=== PATIENT | female | born 1995 | race Caucasian/White ===

== ENCOUNTER 2019-08-03 18:31 | Emergency (ER) | payer OTHER ==
[2019-08-03] MEDS ORDERED: SODIUM CHLORIDE 0.9% 1,000 ML IV ONE (20:30)
[2019-08-03 20:54] LABS: Appearance,Urine Clear (Clear); Bilirubin,Urine Negative (Negative); Blood,Urine Moderate (Negative); Color,Urine Yellow; Glucose,Urine (UA) Negative (Negative); Ketones,Urine Negative (Negative); Leukocyte Esterase,Urine Trace (Negative); Mucus,Urine Rare /hpf; Nitrite,Urine Negative (Negative); PH, Urine 6.5 (5.0-8.0); Protein,Urine Negative (Negative); RBC,Urine 23 /hpf (0-5); Specific Gravity,Urine 1.012 (1.001-1.035); Squamous Epithelial Cell,Urine 8 /hpf (0-4); Urobilinogen,Urine <2.0 mg/dL (<2.0); WBC,Urine 4 /hpf (0-5)
[2019-08-03 21:00] LABS: Basophils # (A) 0.1 k/uL (0-0.2); Basophils % (A) 1 %; Eosinophils # (A) 0.1 k/uL (0-0.7); Eosinophils % (A) 1 %; HCT 37.6 % (34.0-46.0); Lymphocytes # (A) 3.2 k/uL (1.0-4.8); Lymphocytes % (A) 37 %; MCH 27.1 pg (25.0-35.0); MCHC 31.9 g/dL (31.0-37.0); MCV 84.9 fL (80.0-100.0); Mean Platelet Volume 8.5; Monocytes # (A) 0.4 k/uL (0-1.0); Monocytes % (A) 4 %; Neutrophils # (A) 4.8 k/uL (1.3-7.7); Neutrophils % (A) 55 %; Platelet Count 315 k/uL (150-450); RBC 4.43 m/uL (3.80-5.40); RDW 13.3 % (11.5-15.5); WBC 8.8 k/uL (3.8-10.6)
[2019-08-03 21:14] LABS: INR 0.9 (<1.2); Partial Thromboplastin Time 23.9 sec (22.0-30.0); Prothrombin Time 9.8 sec (9.0-12.0)
[2019-08-03 21:17] LABS: ALT 25 U/L (9-52); AST 23 U/L (14-36); African American GFR (CKD) >90 (>60 ml/min/1.73 sqM); Albumin 4.5 g/dL (3.5-5.0); Alkaline Phosphatase 64 U/L (38-126); Anion Gap 10 mmol/L; Blood Urea Nitrogen 8 mg/dL (7-17); Calcium 9.3 mg/dL (8.4-10.2); Carbon Dioxide 26 mmol/L (22-30); Chloride 105 mmol/L (98-107); Glucose 100 mg/dL (74-99); Sodium 141 mmol/L (137-145); Total Bilirubin 0.2 mg/dL (0.2-1.3)
--- NOTE | 2019-08-03 21:50 | ED ---
General Adult HPI - General Chief complaint: Urogenital Stated complaint: Female Time Seen by Provider: 08/03/19 19:49 Source: patient Mode of arrival: ambulatory Limitations: no limitations - History of Present Illness Initial comments: 24-year-old female patient presents to the emergency department today for evaluation of vaginal bleeding. Patient states for the last 3 months her periods have been very heavy and prolonged. States that she has been bleeding for the last 30 days. States she will have one or 2 days where the bleeding will stop, then it will start again. States yesterday she had to change her pad every two hours. States the bleeding has decreased today. She denies any abdominal or back pain with this. States that she does occasionally have episodes are so feel lightheaded. Denies any dizziness or syncope. Denies any use of control or other hormonal medications. She is , delivered a healthy son 3 years ago. She denies any itching or abnormal discharge. Denies any concern for sexually transmitted infections. Denies any history of abdominal surgery. Denies any history of clotting disorders or use of a nticoagulants. States her last gynecologic exam was 3 years ago after delivery of her child. Patient denies any recent rash, fever, chills, shortness breath, chest pain, nausea, vomiting, diarrhea, constipation, back pain, numbness, tingling, dizziness, weakness, dysuria, urinary urgency, urinary frequency, headache, visual changes, or any other complaints. - Related Data Home Medications Medication Instructions Recorded Confirmed Multivitamins, Thera [Multivitamin 1 tab PO DAILY 08/03/19 08/03/19 (formulary)] Allergies Allergy/AdvReac Type Severity Reaction Status Date / Time Penicillins Allergy Unknown Verified 08/03/19 20:15 Review of Systems ROS Statement: Those systems with pertinent positive or pertinent negative responses have been documented in the HPI. ROS Other: All systems not noted in ROS Statement are negative. Past Medical History Past Medical History: No Reported History History of Any Multi-Drug Resistant Organisms: None Reported Past Surgical History: No Surgical Hx Reported Past Psychological History: Anxiety, Depression Smoking Status: Never smoker Past Alcohol Use History: Occasional Past Drug Use History: None Reported General Exam Limitations: no limitations General appearance: alert, in no apparent distress, other (This is a well- developed, well-nourished adult female patient in no acute distress. Vital signs upon presentation are temperature 98.8F, pulse 99, respirations 18, blood pressure 132/86, pulse ox 99% on room air) Eye exam: Present: normal appearance, PERRL, EOMI. Absent: scleral icterus, conjunctival injection, periorbital swelling ENT exam: Present: normal exam, normal oropharynx, mucous membranes moist Respiratory exam: Present: normal lung sounds bilaterally. Absent: respiratory distress, wheezes, rales, rhonchi, stridor Cardiovascular Exam: Present: regular rate, normal rhythm, normal heart sounds. Absent: systolic murmur, diastolic murmur, rubs, gallop, clicks GI/Abdominal exam: Present: soft, normal bowel sounds. Absent: distended, tenderness, guarding, rebound, rigid External exam: Present: normal external exam Speculum exam: Present: vaginal bleeding (Mild, dark red). Absent: tissue, laceration By manual exam: Present: normal by manual exam. Absent: cervical motion tenderness, adnexal tenderness, uterine enlargement Neurological exam: Present: alert, oriented X3, CN II-XII intact Psychiatric exam: Present: normal affect, normal mood Skin exam: Present: warm, dry, intact, normal color. Absent: rash Course Vital Signs 08/03/19 18:55 Temperature 98.8 F Pulse Rate 99 Respiratory 18 Rate Blood Pressure 132/86 O2 Sat by Pulse 99 Oximetry Medical Decision Making - Medical Decision Making 24-year-old female patient presents to the emergency department today for evaluation of vaginal bleeding which has been both heavier than usual and prolonged. Physical examination is unremarkable. Pelvic exam was performed and did reveal mild vaginal bleeding from the cervical os. No uterine enlargement or adnexal tenderness. Labs reviewed and were unremarkable. Hemoglobin is normal. Ultrasound reviewed and did show mild hypertrophy of the endometrium and a complex left ovarian cyst. Vital signs are within normal ranges. She is not having any pain with her symptoms. I did discuss these findings with the patient. She'll be discharged to follow-up with the coke loader for further evaluation as soon as possible. She is instructed to follow-up with her primary care physician for recheck in 1-2 days. Return parameters were discussed in detail. She verbalizes understanding and agrees with this plan. Case was discussed with my attending physician Dr. Samson who agreed with my impression and plan. - Lab Data Result diagrams: 08/03/19 20:54 08/03/19 20:54 Lab Results 08/03/19 08/03/19 08/03/19 Range/Units 20:36 20:36 20:54 WBC 8.8 (3.8-10.6) k/uL RBC 4.43 (3.80-5.40) m/uL Hgb 12.0 (11.4-16.0) gm/dL Hct 37.6 (34.0-46.0) % MCV 84.9 (80.0-100.0) fL MCH 27.1 (25.0-35.0) pg MCHC 31.9 (31.0-37.0) g/dL RDW 13.3 (11.5-15.5) % Plt Count 315 (150-450) k/uL Neutrophils % 55 % Lymphocytes % 37 % Monocytes % 4 % Eosinophils % 1 % Basophils % 1 % Neutrophils # 4.8 (1.3-7.7) k/uL Lymphocytes # 3.2 (1.0-4.8) k/uL Monocytes # 0.4 (0-1.0) k/uL Eosinophils # 0.1 (0-0.7) k/uL Basophils # 0.1 (0-0.2) k/uL PT (9.0-12.0) sec INR (<1.2) APTT (22.0-30.0) sec Sodium (137-145) mmol/L Potassium (3.5-5.1) mmol/L Chloride (98-107) mmol/L Carbon Dioxide (22-30) mmol/L Anion Gap mmol/L BUN (7-17) mg/dL Creatinine (0.52-1.04) mg/dL Est GFR (CKD-EPI)AfAm (>60 ml/min/1.73 sqM) Est GFR (CKD-EPI)NonAf (>60 ml/min/1.73 sqM) Glucose (74-99) mg/dL Calcium (8.4-10.2) mg/dL Total Bilirubin (0.2-1.3) mg/dL AST (14-36) U/L ALT (9-52) U/L Alkaline Phosphatase (38-126) U/L Total Protein (6.3-8.2) g/dL Albumin (3.5-5.0) g/dL TSH (0.465-4.680) mIU/L Urine Color Yellow Urine Appearance Clear (Clear) Urine pH 6.5 (5.0-8.0) Ur Specific [place] 1.012 (1.001-1.035) Urine Protein Negative (Negative) Urine Glucose (UA) Negative (Negative) Urine Ketones Negative (Negative) Urine Blood Moderate H (Negative) Urine Nitrite Negative (Negative) Urine Bilirubin Negative (Negative) Urine Urobilinogen <2.0 (<2.0) mg/dL Ur Leukocyte Esterase Trace H (Negative) Urine RBC 23 H (0-5) /hpf Urine WBC 4 (0-5) /hpf Ur Squamous Epith Cells 8 H (0-4) /hpf Urine Mucus Rare H (None) /hpf Urine HCG, Qual Not Detected (Not Detectd) 08/03/19 08/03/19 08/03/19 Range/Units 20:54 20:54 20:54 WBC (3.8-10.6) k/uL RBC (3.80-5.40) m/uL Hgb (11.4-16.0) gm/dL Hct (34.0-46.0) % MCV (80.0-100.0) fL MCH (25.0-35.0) pg MCHC (31.0-37.0) g/dL RDW (11.5-15.5) % Plt Count (150-450) k/uL Neutrophils % % Lymphocytes % % Monocytes % % Eosinophils % % Basophils % % Neutrophils # (1.3-7.7) k/uL Lymphocytes # (1.0-4.8) k/uL Monocytes # (0-1.0) k/uL Eosinophils # (0-0.7) k/uL Basophils # (0-0.2) k/uL PT 9.8 (9.0-12.0) sec INR 0.9 (<1.2) APTT 23.9 (22.0-30.0) sec Sodium 141 (137-145) mmol/L Potassium 4.0 (3.5-5.1) mmol/L Chloride 105 (98-107) mmol/L Carbon Dioxide 26 (22-30) mmol/L Anion Gap 10 mmol/L BUN 8 (7-17) mg/dL Creatinine 0.68 (0.52-1.04) mg/dL Est GFR (CKD-EPI)AfAm >90 (>60 ml/min/1.73 sqM) Est GFR (CKD-EPI)NonAf >90 (>60 ml/min/1.73 sqM) Glucose 100 H (74-99) mg/dL Calcium 9.3 (8.4-10.2) mg/dL Total Bilirubin 0.2 (0.2-1.3) mg/dL AST 23 (14-36) U/L ALT 25 (9-52) U/L Alkaline Phosphatase 64 (38-126) U/L Total Protein 8.0 (6.3-8.2) g/dL Albumin 4.5 (3.5-5.0) g/dL TSH 2.150 (0.465-4.680) mIU/L Urine Color Urine Appearance (Clear) Urine pH (5.0-8.0) Ur Specific [place] (1.001-1.035) Urine Protein (Negative) Urine Glucose (UA) (Negative) Urine Ketones (Negative) Urine Blood (Negative) Urine Nitrite (Negative) Urine Bilirubin (Negative) Urine Urobilinogen (<2.0) mg/dL Ur Leukocyte Esterase (Negative) Urine RBC (0-5) /hpf Urine WBC (0-5) /hpf Ur Squamous Epith Cells (0-4) /hpf Urine Mucus (None) /hpf Urine HCG, Qual (Not Detectd) - Radiology Data Radiology results: report reviewed, image reviewed Transvaginal ultrasound was obtained. Report was reviewed in its entirety. Impression by Dr. James shows mild hypertrophy of the endometrium. Complex left ovarian cyst. No free fluid. Disposition Clinical Impression: Dysfunctional uterine bleeding, Ovarian cyst Disposition: HOME SELF-CARE Condition: Good Instructions (If sedation given, give patient instructions): Dysfunctional Uterine Bleeding (ED), Ovarian Cyst (ED) Additional Instructions: Follow-up with gynecology for further evaluation as soon as possible. Increase fluids. Follow-up with coke loader for further evaluation as soon as possible. Follow up with primary care physician for recheck in 1-2 days. Return to the emergency department immediately for any new, worsening, or concerning symptoms. Is patient prescribed a controlled substance at d/c from ED?: No Referrals: Jeet Garrido MD [STAFF PHYSICIAN] - 1-2 days Time of Disposition: 22:51
--- NOTE | 2019-08-03 22:22 | US ---
EXAMINATION TYPE: US transvaginal DATE OF EXAM: 08/03/2019 COMPARISON: NONE CLINICAL HISTORY: pain. Pain per order. Irregular periods x 3 months. Each last about 1 month. Clots. . TECHNIQUE: Transvaginal (TV). Date of LMP: 07/13/2019 EXAM MEASUREMENTS: Uterus: 9.0 x 5.3 x 4.6 cm Endometrial Stripe: 1.54 cm Right Ovary: not seen Left Ovary: 3.5 x 2.6 x 2.2 cm 1. Uterus: Anteverted Small cluster of hyperechoic areas seen in the [place] measurin.4 x 0.4 x 0. 6 cm. Multiple anechoic areas seen in [place], largest measurin.5 x 0.4 x 0.4 cm. 2. Endometrium: Appears slightly thickened 3. Right Ovary: not seen 4. Left Ovary: Complex area seen in left ovary measurin.7 x 1.3 x 1.3 cm. Spectral, color and waveform doppler imaging shows good arterial and venous flow within the left ov jacques; there is no evidence for ovarian torsion of the left ovary. Right ovary is not seen. 5. Bilateral Adnexa: appear wnl 6. Posterior cul-de-sac: appears wnl . IMPRESSION: : Mild hypertrophy of the endometrium. Complex left ovarian cyst. No free fluid.
[2019-08-03 23:02] VITALS: BP 124/74; PULSE 79; RESP 20; TEMP 98.1
== END 2019-08-03 23:12 | disposition home or self-care (01) ==
LOC: EC 18:31
DX: N93.8 Other specified abnormal uterine and vaginal bleeding (principal); N83.202 Unspecified ovarian cyst, left side; R42 Dizziness and giddiness; Z88.0 Allergy status to penicillin
CPT/HCPCS: 36415; 76830; 80053; 81001; 81025; 84443; 85025; 85610; 85730; 93976; 96360; 99284

== ENCOUNTER 2020-05-25 23:21 | Emergency (ER) | payer OTHER ==
[2020-05-25] MEDS ORDERED: IBUPROFEN 400 MG TAB PO STA (23:51)
[2020-05-25] MEDS ORDERED: ACETAMINOPHEN TAB 325 MG TAB PO STA (23:51)
--- NOTE | 2020-05-26 00:16 | ED ---
Fever HPI - General Chief Complaint: Fever Stated Complaint: Fever, headaches Time Seen by Provider: 05/25/20 23:37 Source: patient Mode of arrival: ambulatory Limitations: no limitations - History of Present Illness MD Complaint: fever Onset/Timin -: days(s) Temperature Source: subjective Associated Symptoms: myalgias, headache Treatments Prior to Arrival: none - Related Data Home Medications Medication Instructions Recorded Confirmed Multivitamins, Thera [Multivitamin 1 tab PO DAILY 08/03/19 08/03/19 (formulary)] Previous Rx's Medication Instructions Recorded Sulfamethox-Tmp 800-160Mg [Bactrim 1 each PO Q12HR #10 tab 05/26/20 Ds] Allergies Allergy/AdvReac Type Severity Reaction Status Date / Time Penicillins Allergy Unknown Verified 05/25/20 23:29 Review of Systems ROS Statement: Those systems with pertinent positive or pertinent negative responses have been documented in the HPI. ROS Other: All systems not noted in ROS Statement are negative. Constitutional: Reports: fever. Denies: chills, weakness Eyes: Denies: eye pain ENT: Denies: ear pain, throat pain, congestion Respiratory: Denies: cough, dyspnea Cardiovascular: Denies: chest pain, palpitations, edema, syncope Gastrointestinal: Denies: abdominal pain, nausea, vomiting, diarrhea, constipation Genitourinary: Denies: dysuria, frequency, hematuria, discharge Musculoskeletal: Reports: myalgia. Denies: back pain, arthralgia Skin: Denies: rash Neurological: Reports: headache. Denies: weakness, numbness, paresthesias, confusion Psychiatric: Denies: anxiety Past Medical History Past Medical History: No Reported History History of Any Multi-Drug Resistant Organisms: None Reported Past Surgical History: No Surgical Hx Reported Past Psychological History: Anxiety, Depression Smoking Status: Never smoker Past Alcohol Use History: Occasional Past Drug Use History: None Reported General Exam Limitations: no limitations General appearance: alert, in no apparent distress Head exam: Present: atraumatic, normocephalic Eye exam: Present: normal appearance. Absent: scleral icterus, conjunctival injection ENT exam: Present: normal oropharynx, mucous membranes moist Neck exam: Present: normal inspection, full ROM, lymphadenopathy. Absent: tenderness, meningismus Respiratory exam: Present: normal lung sounds bilaterally. Absent: respiratory distress, wheezes, rales, rhonchi, stridor Cardiovascular Exam: Present: normal rhythm, tachycardia, normal heart sounds. Absent: systolic murmur, diastolic murmur, rubs, gallop GI/Abdominal exam: Present: soft. Absent: distended, tenderness, guarding, rebound, rigid, mass Extremities exam: Present: normal inspection, normal capillary refill. Absent: pedal edema, calf tenderness Back exam: Present: normal inspection. Absent: CVA tenderness (R), CVA tenderness (L) Neurological exam: Present: alert, oriented X3. Absent: motor sensory deficit Skin exam: Present: warm, dry, intact, normal color. Absent: rash Course Vital Signs 05/25/20 05/26/20 23:26 00:23 Temperature 103.3 F H 100.1 F H Pulse Rate 140 H 125 H Respiratory 20 16 Rate Blood Pressure 125/66 104/75 O2 Sat by Pulse 97 95 Oximetry Medical Decision Making - Lab Data Lab Results 05/26/20 05/26/20 Range/Units 00:23 00:23 Urine Color Yellow Urine Appearance Cloudy H (Clear) Urine pH 5.5 (5.0-8.0) Ur Specific [place] 1.015 (1.001-1.035) Urine Protein 1+ H (Negative) Urine Glucose (UA) Negative (Negative) Urine Ketones Negative (Negative) Urine Blood Negative (Negative) Urine Nitrite Negative (Negative) Urine Bilirubin Negative (Negative) Urine Urobilinogen 2.0 (<2.0) mg/dL Ur Leukocyte Esterase Large H (Negative) Urine RBC 5 (0-5) /hpf Urine WBC 53 H (0-5) /hpf Ur Squamous Epith Cells 8 H (0-4) /hpf Urine Bacteria Rare H (None) /hpf Hyaline Casts 2 (0-2) /lpf Urine Mucus Many H (None) /hpf Urine HCG, Qual Not Detected (Not Detectd) Disposition Clinical Impression: Urinary tract infection Disposition: HOME SELF-CARE Condition: Good Instructions (If sedation given, give patient instructions): Urinary Tract Infection in Women (ED) Prescriptions: Sulfamethox-Tmp 800-160Mg [Bactrim Ds] 1 each PO Q12HR #10 tab Is patient prescribed a controlled substance at d/c from ED?: No Referrals: Maty Nunez MD [Primary Care Provider] - 1-2 days
[2020-05-26 00:25] VITALS: RESP 16
[2020-05-26 00:36] LABS: Appearance,Urine Cloudy (Clear); Bacteria,Urine Rare /hpf; Bilirubin,Urine Negative (Negative); Blood,Urine Negative (Negative); Color,Urine Yellow; Glucose,Urine (UA) Negative (Negative); Hyaline Casts,Urine 2 /lpf (0-2); Ketones,Urine Negative (Negative); Leukocyte Esterase,Urine Large (Negative); Mucus,Urine Many /hpf; Nitrite,Urine Negative (Negative); PH, Urine 5.5 (5.0-8.0); Protein,Urine 1+ (Negative); RBC,Urine 5 /hpf (0-5); Specific Gravity,Urine 1.015 (1.001-1.035); Squamous Epithelial Cell,Urine 8 /hpf (0-4); WBC,Urine 53 /hpf (0-5)
[2020-05-26] MEDS ORDERED: SULFAMETHOX-TMP 800-160MG 1 EACH TAB PO STA (00:46)
[2020-05-26 01:33] VITALS: BP 118/71; PULSE 108; TEMP 98.7
== END 2020-05-26 01:33 | disposition home or self-care (01) ==
LOC: EC 23:21
DX: N39.0 Urinary tract infection, site not specified (principal); R50.9 Fever, unspecified; Z88.0 Allergy status to penicillin; Z20.828 Contact with and (suspected) exposure to other viral communicable diseases
CPT/HCPCS: 99283; 81001; 81025; U0003

== ENCOUNTER → 2021-10-21 | Outpatient (CLI) | payer OTHER ==
--- NOTE | 2021-10-21 11:06 | US ---
EXAMINATION TYPE: US pelvis complete transvag DATE OF EXAM: 10/21/2021 COMPARISON: NONE CLINICAL HISTORY: N92.6 IRREGULAR MENSES. TECHNIQUE: Transvaginal (TV) and Transabdominal (TA) . Transabdominal sonographic images of the pel vis were acquired. Transvaginal sonographic images were medically necessary to better assess the fol lowing anatomy: Ovaries Date of LMP: 10/19/2021 EXAM MEASUREMENTS: Uterus: 9.4 x 5.7 x 4.2 cm Endometrial Stripe: 0.7- 0.8 cm Right Ovary: 5.3 x 2.4 x 2.5 cm Left Ovary: 3.4 x 2.2 x 2.2 cm 1. Uterus: Anteverted wnl 2. Endometrium: wnl 3. Right Ovary: wnl 4. Left Ovary: wnl 6. Posterior cul-de-sac: wnl Heterogeneous uterus without free fluid in pelvis. Both ovaries seen scattered peripheral follicles. No suspicious extraovarian adnexal masses. IMPRESSION: Slightly thickened endometrium for proliferative phase of menstrual cycle otherwise unrem arkable study.
== END | disposition home or self-care (01) ==
LOC: RADUSWWP 09:42
PROVIDERS: ATTEND Family Medicine
DX: N92.6 Irregular menstruation, unspecified (principal)
CPT/HCPCS: 76830; 76856

== ENCOUNTER 2023-12-11 10:52 | Emergency (ER) | payer OTHER ==
[2023-12-11 11:06] VITALS: TEMP 98.2
--- NOTE | 2023-12-11 11:24 | ED ---
GI Bleed HPI - General Chief complaint: GI Bleed Stated complaint: abd pain Time Seen by Provider: 12/11/23 11:21 Source: patient, RN notes reviewed Mode of arrival: ambulatory Limitations: no limitations - History of Present Illness Initial comments: Patient is a 28-year-old female presented to the ER with a chief complaint of lower abdominal pain with rectal bleeding. Patient states for the past 3 days she has been having lower abdominal pain. She states it is intermittent but does last for a while when it does. No known triggers. She does state that she has been having some bright red blood in her stool along with constant diarrhea. Denies any straining with defecation, hemorrhoids or anal fissures. States she has been feeling nauseous denies any episodes of vomiting. Denies any fevers, chills, night sweats, blood thinner use. - Related Data Home Medications Medication Instructions Recorded Confirmed Pnv No.95/Ferrous Fum/Folic AC 1 each PO DAILY 11/22/21 11/22/21 [ Multivitamin Tablet] Previous Rx's Medication Instructions Recorded Dicyclomine [Bentyl] 20 mg PO TID #21 tablet 12/11/23 Ondansetron Odt [Zofran Odt] 4 mg PO Q8HR PRN #10 tab 12/11/23 Allergies Allergy/AdvReac Type Severity Reaction Status Date / Time Penicillins Allergy Rash/Hives Verified 12/11/23 11:02 Review of Systems ROS Statement: Those systems with pertinent positive or pertinent negative responses have been documented in the HPI. ROS Other: All systems not noted in ROS Statement are negative. Past Medical History Past Medical History: Eye Disorder Additional Past Medical History / Comment(s): Retinitis pigmentosis bilat eyes. Lipoma on upper back. History of Any Multi-Drug Resistant Organisms: None Reported Past Surgical History: No Surgical Hx Reported Additional Past Surgical History / Comment(s): Surgery for tongue-tied x2. Past Anesthesia/Blood Transfusion Reactions: No Reported Reaction Past Psychological History: Anxiety, Depression Smoking Status: Never smoker Past Alcohol Use History: None Reported Past Drug Use History: None Reported - Past Family History Mother Additional Family Medical History / Comment(s): blood clot, unsure of where General Exam Limitations: no limitations General appearance: alert, in no apparent distress Head exam: Present: atraumatic, normocephalic, normal inspection Respiratory exam: Present: normal lung sounds bilaterally. Absent: respiratory distress, wheezes, rales, rhonchi, stridor Cardiovascular Exam: Present: regular rate, normal rhythm, normal heart sounds. Absent: systolic murmur, diastolic murmur, rubs, gallop, clicks GI/Abdominal exam: Present: soft, tenderness (Left lower quadrant and right lower quadrant), normal bowel sounds Neurological exam: Present: alert, oriented X3, CN II-XII intact Psychiatric exam: Present: normal affect, normal mood Skin exam: Present: warm, dry, intact, normal color. Absent: rash Course Vital Signs 12/11/23 12/11/23 12/11/23 11:01 12:02 14:20 Temperature 98.2 F Pulse Rate 69 72 71 Respiratory 20 17 17 Rate Blood Pressure 141/82 144/100 116/79 O2 Sat by Pulse 99 97 98 Oximetry Medical Decision Making - Medical Decision Making Was pt. sent in by a medical professional or institution (, PA, SQL ENGINEER, urgent care, hospital, or custodial...) When possible be specific @ -No Did you speak to anyone other than the patient for history (EMS, parent, family, police, friend...)? What history was obtained from this source @ -No Did you review nursing and triage notes (agree or disagree)? Why? @ -I reviewed and agree with nursing and triage notes Were old charts reviewed (outside hosp., previous admission, EMS record, old EKG, old radiological studies, urgent care reports/EKG's, custodial records)? Report findings @ -No old charts were reviewed Differential Diagnosis (chest pain, altered mental status, abdominal pain women, abdominal pain men, vaginal bleeding, weakness, fever, dyspnea, syncope, headache, dizziness, GI bleed, back pain, seizure, CVA, palpatations, mental health, musculoskeletal)? @ -Differential Abdominal Pain Women: Appendicitis, Cholecystitis, diverticulosis, ischemic bowel, pancreatitis, hepatitis, UTI, gastroenteritis, AAA, incarcerated hernia, bowel obstruction, constipation, inflammatory bowel, hepatitis, peptic ulcer disease, splenic infarction, perforated viscus, vulvitis, ovarian torsion, PID, kidney stone, placenta abruption, this is not meant to be an all-inclusive list EKG interpreted by me (3pts min.). @ -None X-rays interpreted by me (1pt min.). @ -None done CT interpreted by me (1pt min.). @ -CT abdomen pelvis showing findings consistent with colitis of the splenic flexure extending to the descending colon. No organizing fluid collection or evidence of perforation. There is cholelithiasis. U/S interpreted by me (1pt. min.). @ -None done What testing was considered but not performed or refused? (CT, X-rays, U/S, labs)? Why? @ -None What meds were considered but not given or refused? Why? @ -None Did you discuss the management of the patient with other professionals (professionals i.e. DrMarquez, PA, SQL ENGINEER, lab, RT, psych nurse, administrator social welfare, staff field engineer, teacher, chief security and safety officer, manager case)? Give summary @ -No Was smoking cessation discussed for >3mins.? @ -No Was critical care preformed (if so, how long)? @ -No Were there social determinants of health that impacted care today? How? (Homele ssness, low income, unemployed, alcoholism, drug addiction, transportation, low edu. Level, literacy, decrease access to med. care, group home, rehab)? @ -No Was there de-escalation of care discussed even if they declined (Discuss DNR or withdrawal of care, Hospice)? DNR status @ -No What co-morbidities impacted this encounter? (DM, HTN, Smoking, COPD, CAD, Cancer, CVA, ARF, Chemo, Hep., AIDS, mental health diagnosis, sleep apnea, morbid obesity)? @ -None Was patient admitted / discharged? Hospital course, mention meds given and route, prescriptions, significant lab abnormalities, going to OR and other pertinent info. @ -Discharge. Patient is a 28-year-old female presenting to the ER with a chief complaint abdominal pain and rectal bleeding. History and physical exam were completed. Vitals stable. Exam was significant for exquisitely tender right and left lower quadrant. Rectal exam was performed and chaperoned by Patricia Venegas RN. Labs significant for white blood cell count of 11.9, AST 55, ALT 45. Urinalysis without signs of infection. Stool occult blood negative. COVID, influenza, RSV negative. CT abdomen pelvis showing signs of colitis at splenic flexure extending to the descending colon. No organized fluid collections or evidence of perforation. There is also cholelithiasis present. Patient received IV fluids and by mouth Tylenol. Patient did have an episode of vomiting while in the ER. Patient denied nausea medication. I discussed imaging and lab results with patient. Advised her to increase hydration and monitor for any worsening signs and symptoms. Patient prescribed Zofran and Bentyl. Advised her to follow-up with GI in the next 1 to 2 weeks. Referral was given. Return parameters were discussed. Patient be discharged stable condition with follow- up to PCP/GI. Patient expressed understanding and agreement with care plan. Undiagnosed new problem with uncertain prognosis? @ -No Drug Therapy requiring intensive monitoring for toxicity (Heparin, Nitro, Insulin, Cardizem)? @ -No Were any procedures done? @ -No Diagnosis/symptom? @ -Colitis Acute, or Chronic, or Acute on Chronic? @ -Acute Uncomplicated (without systemic symptoms) or Complicated (systemic symptoms)? @ -Uncomplicated Side effects of treatment? @ -No Exacerbation, Progression, or Severe Exacerbation? @ -No Poses a threat to life or bodily function? How? (Chest pain, USA, ME, pneumonia, PE, COPD, DKA, ARF, appy, cholecystitis, CVA, Diverticulitis, Homicidal, Abby cidal, threat to staff... and all critical care pts) @ -No - Lab Data Result diagrams: 12/11/23 11:48 12/11/23 11:48 Lab Results 12/11/23 12/11/23 12/11/23 Range/Units 11:48 11:48 11:48 WBC 11.9 H (3.8-10.6) k/uL RBC 4.78 (3.80-5.40) m/uL Hgb 12.0 (11.4-16.0) gm/dL Hct 37.3 (34.0-46.0) % MCV 78.0 L (80.0-100.0) fL MCH 25.1 (25.0-35.0) pg MCHC 32.2 (31.0-37.0) g/dL RDW 14.7 (11.5-15.5) % Plt Count 269 (150-450) k/uL MPV 10.9 Hypochromasia Slight Sodium (137-145) mmol/L Potassium (3.5-5.1) mmol/L Chloride (98-107) mmol/L Carbon Dioxide (22-30) mmol/L Anion Gap mmol/L BUN (7-17) mg/dL Creatinine (0.52-1.04) mg/dL Est GFR (CKD-EPI)AfAm (>60 ml/min/1.73 sqM) Est GFR (CKD-EPI)NonAf (>60 ml/min/1.73 sqM) Glucose (74-99) mg/dL Plasma Lactic Acid Alden (0.7-2.0) mmol/L Calcium (8.4-10.2) mg/dL Total Bilirubin (0.2-1.3) mg/dL AST (14-36) U/L ALT (4-34) U/L Alkaline Phosphatase (38-126) U/L Total Protein (6.3-8.2) g/dL Albumin (3.5-5.0) g/dL Amylase (30-110) U/L Lipase (23-300) U/L Urine Color Yellow Urine Appearance Cloudy H (Clear) Urine pH 7.0 (5.0-8.0) Ur Specific [place] 1.027 (1.001-1.035) Urine Protein Trace H (Negative) Urine Glucose (UA) Negative (Negative) Urine Ketones Negative (Negative) Urine Blood Negative (Negative) Urine Nitrite Negative (Negative) Urine Bilirubin Negative (Negative) Urine Urobilinogen <2.0 (<2.0) mg/dL Ur Leukocyte Esterase Small H (Negative) Urine RBC 2 (0-5) /hpf Urine WBC 3 (0-5) /hpf Ur Squamous Epith Cells 4 (0-4) /hpf Urine Mucus Many H (None) /hpf Urine Yeast (Budding) Many H (None) /hpf Urine HCG, Qual Not Detected (Not Detectd) Stool Occult Blood (Negative) Influenza Type A (PCR) (Not Detectd) Influenza Type B (PCR) (Not Detectd) RSV (PCR) (Not Detectd) SARS-CoV-2 (PCR) (Not Detectd) 12/11/23 12/11/23 12/11/23 Range/Units 11:48 11:48 12:09 WBC (3.8-10.6) k/uL RBC (3.80-5.40) m/uL Hgb (11.4-16.0) gm/dL Hct (34.0-46.0) % MCV (80.0-100.0) fL MCH (25.0-35.0) pg MCHC (31.0-37.0) g/dL RDW (11.5-15.5) % Plt Count (150-450) k/uL MPV Hypochromasia Sodium 141 (137-145) mmol/L Potassium 4.7 (3.5-5.1) mmol/L Chloride 110 H (98-107) mmol/L Carbon Dioxide 22 (22-30) mmol/L Anion Gap 9 mmol/L BUN 11 (7-17) mg/dL Creatinine 0.63 (0.52-1.04) mg/dL Est GFR (CKD-EPI)AfAm >90 (>60 ml/min/1.73 sqM) Est GFR (CKD-EPI)NonAf >90 (>60 ml/min/1.73 sqM) Glucose 126 H (74-99) mg/dL Plasma Lactic Acid Alden 1.9 (0.7-2.0) mmol/L Calcium 9.3 (8.4-10.2) mg/dL Total Bilirubin 0.3 (0.2-1.3) mg/dL AST 55 H (14-36) U/L ALT 45 H (4-34) U/L Alkaline Phosphatase 74 (38-126) U/L Total Protein 7.3 (6.3-8.2) g/dL Albumin 4.2 (3.5-5.0) g/dL Amylase 47 (30-110) U/L Lipase 80 (23-300) U/L Urine Color Urine Appearance (Clear) Urine pH (5.0-8.0) Ur Specific [place] (1.001-1.035) Urine Protein (Negative) Urine Glucose (UA) (Negative) Urine Ketones (Negative) Urine Blood (Negative) Urine Nitrite (Negative) Urine Bilirubin (Negative) Urine Urobilinogen (<2.0) mg/dL Ur Leukocyte Esterase (Negative) Urine RBC (0-5) /hpf Urine WBC (0-5) /hpf Ur Squamous Epith Cells (0-4) /hpf Urine Mucus (None) /hpf Urine Yeast (Budding) (None) /hpf Urine HCG, Qual (Not Detectd) Stool Occult Blood Negative (Negative) Influenza Type A (PCR) (Not Detectd) Influenza Type B (PCR) (Not Detectd) RSV (PCR) (Not Detectd) SARS-CoV-2 (PCR) (Not Detectd) 12/11/23 Range/Units 12:09 WBC (3.8-10.6) k/uL RBC (3.80-5.40) m/uL Hgb (11.4-16.0) gm/dL Hct (34.0-46.0) % MCV (80.0-100.0) fL MCH (25.0-35.0) pg MCHC (31.0-37.0) g/dL RDW (11.5-15.5) % Plt Count (150-450) k/uL MPV Hypochromasia Sodium (137-145) mmol/L Potassium (3.5-5.1) mmol/L Chloride (98-107) mmol/L Carbon Dioxide (22-30) mmol/L Anion Gap mmol/L BUN (7-17) mg/dL Creatinine (0.52-1.04) mg/dL Est GFR (CKD-EPI)AfAm (>60 ml/min/1.73 sqM) Est GFR (CKD-EPI)NonAf (>60 ml/min/1.73 sqM) Glucose (74-99) mg/dL Plasma Lactic Acid Alden (0.7-2.0) mmol/L Calcium (8.4-10.2) mg/dL Total Bilirubin (0.2-1.3) mg/dL AST (14-36) U/L ALT (4-34) U/L Alkaline Phosphatase (38-126) U/L Total Protein (6.3-8.2) g/dL Albumin (3.5-5.0) g/dL Amylase (30-110) U/L Lipase (23-300) U/L Urine Color Urine Appearance (Clear) Urine pH (5.0-8.0) Ur Specific [place] (1.001-1.035) Urine Protein (Negative) Urine Glucose (UA) (Negative) Urine Ketones (Negative) Urine Blood (Negative) Urine Nitrite (Negative) Urine Bilirubin (Negative) Urine Urobilinogen (<2.0) mg/dL Ur Leukocyte Esterase (Negative) Urine RBC (0-5) /hpf Urine WBC (0-5) /hpf Ur Squamous Epith Cells (0-4) /hpf Urine Mucus (None) /hpf Urine Yeast (Budding) (None) /hpf Urine HCG, Qual (Not Detectd) Stool Occult Blood (Negative) Influenza Type A (PCR) Not Detected (Not Detectd) Influenza Type B (PCR) Not Detected (Not Detectd) RSV (PCR) Not Detected (Not Detectd) SARS-CoV-2 (PCR) Not Detected (Not Detectd) - Radiology Data Radiology results: report reviewed, image reviewed Disposition Clinical Impression: Acute colitis Disposition: HOME SELF-CARE Condition: Stable Instructions (If sedation given, give patient instructions): Colitis (ED) Additional Instructions: Please try to increase hydration. You may use [id number] Tylenol and Motrin for pain control. Please follow-up with GI if symptoms persist. Return to the ER for any new or worsening symptoms. Prescriptions: Dicyclomine [Bentyl] 20 mg PO TID #21 tablet Ondansetron Odt [Zofran Odt] 4 mg PO Q8HR PRN #10 tab PRN Reason: Nausea Is patient prescribed a controlled substance at d/c from ED?: No Referrals: Rene Dunn MD [Primary Care Provider] - 1-2 days Aimee Mercer MD [STAFF PHYSICIAN] - 1-2 days Time of Disposition: 14:17
[2023-12-11] MEDS: ACETAMINOPHEN TAB 325 MG TAB PO STA (11:49)
[2023-12-11] MEDS: SODIUM CHLORIDE 0.9% 1,000 ML IV STA (11:50)
[2023-12-11 12:19] LABS: HCT 37.3 % (34.0-46.0); Hypochromasia Slight; MCH 25.1 pg (25.0-35.0); MCHC 32.2 g/dL (31.0-37.0); Mean Platelet Volume 10.9; Platelet Count 269 k/uL (150-450); RBC 4.78 m/uL (3.80-5.40); RDW 14.7 % (11.5-15.5); WBC 11.9 k/uL (3.8-10.6)
[2023-12-11 12:22] LABS: Appearance,Urine Cloudy (Clear); Bilirubin,Urine Negative (Negative); Blood,Urine Negative (Negative); Budding Yeast,Urine Many /hpf; Color,Urine Yellow; Glucose,Urine (UA) Negative (Negative); Ketones,Urine Negative (Negative); Leukocyte Esterase,Urine Small (Negative); Mucus,Urine Many /hpf; Nitrite,Urine Negative (Negative); Protein,Urine Trace (Negative); RBC,Urine 2 /hpf (0-5); Specific Gravity,Urine 1.027 (1.001-1.035); Squamous Epithelial Cell,Urine 4 /hpf (0-4); Urobilinogen,Urine <2.0 mg/dL (<2.0); WBC,Urine 3 /hpf (0-5)
[2023-12-11 12:37] VITALS: RESP 17
[2023-12-11 12:44] LABS: ALT 45 U/L (4-34); AST 55 U/L (14-36); African American GFR (CKD) >90 (>60 ml/min/1.73 sqM); Albumin 4.2 g/dL (3.5-5.0); Alkaline Phosphatase 74 U/L (38-126); Amylase 47 U/L (30-110); Anion Gap 9 mmol/L; Blood Urea Nitrogen 11 mg/dL (7-17); Calcium 9.3 mg/dL (8.4-10.2); Carbon Dioxide 22 mmol/L (22-30); Chloride 110 mmol/L (98-107); Glucose 126 mg/dL (74-99); Lipase 80 U/L (23-300); Non-African American GFR(CKD) >90 (>60 ml/min/1.73 sqM); Potassium 4.7 mmol/L (3.5-5.1); Sodium 141 mmol/L (137-145); Total Bilirubin 0.3 mg/dL (0.2-1.3); Total Protein 7.3 g/dL (6.3-8.2)
--- NOTE | 2023-12-11 13:43 | CT ---
EXAMINATION TYPE: CT abdomen pelvis wo con CT DLP: 1091.2 mGycm, Automated exposure control for dose reduction was used. DATE OF EXAM: 12/11/2023 1:20 PM COMPARISON: None CLINICAL INDICATION:Female, 28 years old with history of rectal bleeding/abdominal pain; Rectal bleed ing and abdominal pain TECHNIQUE: Axial CT abdomen pelvis wo con;Sagittal and coronal reformats were created on a separate workstation. Contrast used: mL of , (none if empty) Oral contrast used: without Oral Contrast (none if empty) FINDINGS: LOWER CHEST: Unremarkable ABDOMEN LIVER: Unremarkable GALLBLADDER AND BILE DUCTS: Multiple gallstones are present within the gallbladder lumen. PANCREAS: Unremarkable. SPLEEN: Unremarkable. ADRENAL GLANDS: Unremarkable. KIDNEYS AND URETERS: No evidence of hydronephrosis or renal calculus. The ureters are unremarkable. PELVIS BLADDER: Unremarkable REPRODUCTIVE: Unremarkable. ABDOMEN & PELVIS STOMACH AND BOWEL: No evidence of bowel obstruction. Circumferential wall thickening of the r splenic flexure of the colon with wall thickening measuring up to 8 mm extending along the left abdomen invo lving the descending colon. PERITONEUM/RETROPERITONEUM: No evidence of pneumoperitoneum or free fluid. VASCULATURE: No evidence of aortic aneurysm. MUSCULOSKELETAL: No acute osseous abnormalities LYMPH NODES: No gross evidence for lymphadenopathy. SOFT TISSUE/ABDOMINAL WALL: Unremarkable IMPRESSION: 1. Colitis of the splenic flexure extending to the descending colon. No organizing fluid collection or evidence for perforation. 2. Cholelithiasis.
[2023-12-11 14:36] VITALS: BP 116/79; PULSE 71
== END 2023-12-11 14:55 | disposition home or self-care (01) ==
LOC: EC 10:52
DX: K52.9 Noninfective gastroenteritis and colitis, unspecified (principal); K80.20 Calculus of gallbladder without cholecystitis without obstruction; Z88.0 Allergy status to penicillin; Z86.59 Personal history of other mental and behavioral disorders; Z20.822 Contact with and (suspected) exposure to COVID-19
CPT/HCPCS: 36415; 74176; 80053; 81001; 81025; 82150; 82272; 83605; 83690; 85027; 87636; 96360; 99285

== ENCOUNTER 2025-03-10 15:16 | Emergency (ER) | payer OTHER ==
[2025-03-10 15:49] VITALS: RESP 18; TEMP 98
[2025-03-10 17:07] LABS: Basophils # (A) 0.07 10*3/uL (0.00-0.10); Basophils % (A) 0.9 %; Eosinophils # (A) 0.07 10*3/uL (0.04-0.35); Eosinophils % (A) 0.9 %; HCT 35.2 % (37.2-46.3); HGB 11.1 g/dL (12.0-15.0); Lymphocytes # (A) 2.54 10*3/uL (0.90-5.00); Lymphocytes % (A) 34.4 %; MCH 23.5 pg (27.0-32.0); MCHC 31.5 g/dL (32.0-37.0); MCV 74.4 fL (80.0-97.0); Monocytes # (A) 0.46 10*3/uL (0.20-1.00); Monocytes % (A) 6.2 %; Neutrophils # (A) 4.22 10*3/uL (1.80-7.70); Neutrophils % (A) 57.2 %; Platelet Count 353 10*3/uL (140-440); RBC 4.73 10*6/uL (4.10-5.20); RDW 16.7 % (11.5-14.5); WBC 7.39 10*3/uL (4.50-10.00)
[2025-03-10] MEDS: SODIUM CHLORIDE 0.9% 1,000 ML IV ONE (17:11)
[2025-03-10] MEDS: KETOROLAC 15 MG/ML 1 ML VIAL IVP STA (17:13)
[2025-03-10] MEDS: MORPHINE SULFATE 4 MG/ML SYRINGE IVP STA (17:14)
--- NOTE | 2025-03-10 17:22 | ED ---
Skin/Abscess/FB HPI - General Chief complaint: Recheck/Abnormal Lab/Rx Stated complaint: Post Op Issues Time Seen by Provider: 03/10/25 16:23 Source: patient, RN notes reviewed Mode of arrival: ambulatory Limitations: no limitations - History of Present Illness Initial comments: This is a 29-year-old female who presents to the emergency department for co ncerns of a surgical infection. On 02/22 patient had skin cancer removed at [facility] in [place] with Dr. Ruggiero. Over the last couple of days she has noticed increasing pain and swelling over the suture site. They were going to see her in the office today, however she was unable to make it due to the long drive. She is scheduled to get the sutures out in 4 days. Denies any fevers or chills. - Related Data Home Medications Medication Instructions Recorded Confirmed Pnv No.95/Ferrous Fum/Folic AC 1 each PO DAILY 11/22/21 11/22/21 [ Multivitamin Tablet] Previous Rx's Medication Instructions Recorded Dicyclomine [Bentyl] 20 mg PO TID #21 tablet 12/11/23 Ondansetron Odt [Zofran Odt] 4 mg PO Q8HR PRN #10 tab 12/11/23 Cephalexin [Keflex] 500 mg PO Q6HR 7 Days #28 cap 03/10/25 HYDROcodone/APAP 5-325MG [[place] 1 tab PO Q6HR PRN 3 Days #12 tab 03/10/25 5-325] Ketorolac [Toradol] 10 mg PO Q6HR PRN #15 tab 03/10/25 Allergies Allergy/AdvReac Type Severity Reaction Status Date / Time Penicillins Allergy Rash/Hives Verified 03/10/25 15:48 Review of Systems ROS Statement: Those systems with pertinent positive or pertinent negative responses have been documented in the HPI. ROS Other: All systems not noted in ROS Statement are negative. Past Medical History Past Medical History: Cancer, Eye Disorder Additional Past Medical History / Comment(s): Retinitis pigmentosis bilat eyes. Lipoma on upper back. skin cancer History of Any Multi-Drug Resistant Organisms: None Reported Past Surgical History: No Surgical Hx Reported Additional Past Surgical History / Comment(s): Surgery for tongue-tied x2. neck for skin cancer Past Anesthesia/Blood Transfusion Reactions: No Reported Reaction Past Psychological History: Anxiety, Depression Smoking Status: Never smoker Past Alcohol Use History: None Reported Past Drug Use History: None Reported - Past Family History Mother Additional Family Medical History / Comment(s): blood clot, unsure of where General Exam Limitations: no limitations General appearance: alert, in no apparent distress Head exam: Present: atraumatic, normocephalic, normal inspection Respiratory exam: Present: normal lung sounds bilaterally. Absent: respiratory distress, wheezes, rales, rhonchi, stridor Cardiovascular Exam: Present: regular rate, normal rhythm Neurological exam: Present: alert, oriented X3, CN II-XII intact Psychiatric exam: Present: normal affect, normal mood Skin exam: Present: other (Large surgical incision to the left side of the neck. The incision is intact and appears to be well-healing. No active drainage. Minor tenderness and swelling along the site.) Course Vital Signs 03/10/25 03/10/25 15:45 18:02 Temperature 98 F Pulse Rate 113 H 94 Respiratory 18 18 Rate Blood Pressure 156/97 146/90 O2 Sat by Pulse 98 99 Oximetry Medical Decision Making - Medical Decision Making This is a 29-year-old female who presents to the emergency department for concerns of an infection along the suture site. Was pt. sent in by a medical professional or institution? @ -No Did you speak to anyone other than the patient for history? @ -No Did you review nursing and triage notes? @ -Yes, and I agree, it is accurate with regards to the patient's symptoms. Were old charts reviewed? @ -No Differential Diagnosis? @ -Cellulitis, abscess, abrasion, normal healing, this is not meant to be an all-inclusive list. EKG interpreted by me (3pts min.)? @ -Not obtained X-rays interpreted by me (1pt min.)? @ -Not obtained CT interpreted by me (1pt min.)? @ -Not obtained U/S interpreted by me (1pt. min.)? @ -Not obtained What testing was considered but not performed? (CT, X-rays, U/S, labs)? Why? @ -None What meds were considered but not given? Why? @ -None Did you discuss the management of the patient with other professionals? @ -No Did you reconcile home meds? @ -No Was smoking cessation discussed for >3mins.? @ -No Was critical care preformed (if so, how long)? @ -No Were there social determinants of health that impacted care today? How? (Homelessness, low income, unemployed, alcoholism, drug addiction, transportation, low edu. Level, literacy, decrease access to med. care, fpc, rehab)? @ -No Was there de-escalation of care discussed even if they declined? (Discuss DNR or withdrawal of care, Hospice)? @ -No What co-morbidities impacted this encounter? (DM, HTN, Smoking, COPD, CAD, Cancer, CVA, Hep., AIDS, mental health diagnosis, sleep apnea, morbid obesity)? @ -Skin cancer Was patient admitted / discharged? @ -Discharged. On exam the suture site was intact and appeared to be healing well. She had some minor tenderness, however there were otherwise no signs of infection. Lab work obtained revealing no acute process. Pain was treated in the emergency department. Advised that we can put her on a course of Keflex in the event there is a small infection developing. This was prescribed along with Toradol and [place] for pain control. She has a follow-up appointment in 4 days to have her sutures removed and I advise she follow-up as scheduled, sooner if needed. Patient discharged home in stable condition. Case discussed with ED attending Dr. Matias. Return precautions reviewed in depth, the patient is instructed to return to the emergency department with any new, worsening, or concerning symptoms. Patient verbalized understanding. Undiagnosed new problem with uncertain prognosis? @ -None Drug Therapy requiring intensive monitoring for toxicity (Heparin, Nitro, Insulin, Cardizem)? @ -None Were any procedures done? @ -None Diagnosis/symptom? @ -Postoperative pain, surgical site tenderness Acute, or Chronic, or Acute on Chronic? @ -Acute Uncomplicated (without systemic symptoms) or Complicated (systemic symptoms)? @ -Uncomplicated Side effects of treatment? @ -None Exacerbation, Progression, or Severe Exacerbation] @ -Not applicable Poses a threat to life or bodily function? @ -No - Lab Data Result diagrams: 03/10/25 16:58 03/10/25 16:58 Lab Results 03/10/25 03/10/25 03/10/25 Range/Units 16:58 16:58 16:58 WBC 7.39 (4.50-10.00) 10*3/uL RBC 4.73 (4.10-5.20) 10*6/uL Hgb 11.1 L (12.0-15.0) g/dL Hct 35.2 L (37.2-46.3) % MCV 74.4 L (80.0-97.0) fL MCH 23.5 L (27.0-32.0) pg MCHC 31.5 L (32.0-37.0) g/dL Plt Count 353 (140-440) 10*3/uL MPV 12.0 (9.5-12.2) fL Immature Gran % (Auto) 0.4 % Neutrophils % 57.2 % Lymphocytes % 34.4 % Monocytes % 6.2 % Eosinophils % 0.9 % Basophils % 0.9 % Immature Gran # 0.03 (0.00-0.04) 10*3/uL Neutrophils # 4.22 (1.80-7.70) 10*3/uL Lymphocytes # 2.54 (0.90-5.00) 10*3/uL Monocytes # 0.46 (0.20-1.00) 10*3/uL Eosinophils # 0.07 (0.04-0.35) 10*3/uL Basophils # 0.07 (0.00-0.10) 10*3/uL Sodium 140 (137-145) mmol/L Potassium 4.7 (3.5-5.1) mmol/L Chloride 103 (98-107) mmol/L Carbon Dioxide 28 (22-30) mmol/L Anion Gap 9 mmol/L BUN 9 (7-17) mg/dL Creatinine 0.69 (0.52-1.04) mg/dL Est GFR (CKD-EPI)AfAm >90 (>60 ml/min/1.73 sqM) Est GFR (CKD-EPI)NonAf >90 (>60 ml/min/1.73 sqM) Glucose 99 (74-99) mg/dL Plasma Lactic Acid Alden 1.2 (0.7-2.0) mmol/L Calcium 9.9 (8.4-10.2) mg/dL Total Bilirubin 0.7 (0.2-1.3) mg/dL AST 37 H (14-36) U/L ALT 19 (4-34) U/L Alkaline Phosphatase 46 (38-126) U/L C-Reactive Protein <0.5 (<1.0) mg/dL Total Protein 8.1 (6.3-8.2) g/dL Albumin 4.7 (3.5-5.0) g/dL Disposition Clinical Impression: Postoperative pain, Pain at surgical site Disposition: HOME SELF-CARE Condition: Good Additional Instructions: Return to the emergency department with any new, worsening, or concerning symptoms. Take the antibiotic as prescribed for 7 days. Take the Toradol with Tylenol as needed for pain relief. If you choose to take the Toradol, do not take any other anti-inflammatories such as ibuprofen, take one or the other. Take the [place] sparingly when your pain is the most severe. Follow-up to have the stitches removed on Thursday as scheduled. Prescriptions: Cephalexin [Keflex] 500 mg PO Q6HR 7 Days #28 cap HYDROcodone/APAP 5-325MG [[place] 5-325] 1 tab PO Q6HR PRN 3 Days #12 tab PRN Reason: Pain Ketorolac [Toradol] 10 mg PO Q6HR PRN #15 tab PRN Reason: Pain Is patient prescribed a controlled substance at d/c from ED?: Yes When asked, does pt state using other controlled substances?: No If prescribed controlled substance>3 days was MAPS reviewed?: Prescribed <3 Days Referrals: Rene Dunn MD [Primary Care Provider] - 1-2 days Time of Disposition: 17:50
[2025-03-10 17:23] LABS: ALT 19 U/L (4-34); African American GFR (CKD) >90 (>60 ml/min/1.73 sqM); Anion Gap 9 mmol/L; Blood Urea Nitrogen 9 mg/dL (7-17); C Reactive Protein <0.5 mg/dL (<1.0); Calcium 9.9 mg/dL (8.4-10.2); Carbon Dioxide 28 mmol/L (22-30); Chloride 103 mmol/L (98-107); Glucose 99 mg/dL (74-99); Non-African American GFR(CKD) >90 (>60 ml/min/1.73 sqM); Sodium 140 mmol/L (137-145); Total Bilirubin 0.7 mg/dL (0.2-1.3)
[2025-03-10 17:25] LABS: AST 37 U/L (14-36); Albumin 4.7 g/dL (3.5-5.0); Potassium 4.7 mmol/L (3.5-5.1); Total Protein 8.1 g/dL (6.3-8.2)
[2025-03-10 17:26] LABS: Alkaline Phosphatase 46 U/L (38-126)
[2025-03-10 18:02] VITALS: BP 146/90; PULSE 94
== END 2025-03-10 18:05 | disposition home or self-care (01) ==
LOC: EC 15:16
DX: G89.18 Other acute postprocedural pain (principal); Z85.828 Personal history of other malignant neoplasm of skin; Z88.0 Allergy status to penicillin
CPT/HCPCS: 36415; 80053; 83605; 85025; 86140; 99283; 96374; 96375; 96361; J2270; J1885